=== PATIENT | female | born 2000 | race Caucasian/White ===

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

== ENCOUNTER 2020-08-24 14:24 | Emergency (ER) | payer OTHER ==
[2020-08-24] MEDS ORDERED: diphenhydrAMINE 50 MG/ML 1 ML VIAL IVP STA (15:08)
[2020-08-24] MEDS ORDERED: SODIUM CHLORIDE 0.9% 1,000 ML IV STA (15:08)
[2020-08-24] MEDS ORDERED: METOCLOPRAMIDE 5 MG/ML 2 ML VIAL IVP STA (15:08)
[2020-08-24] MEDS ORDERED: SODIUM CHLORIDE 0.9% 500 ML 500 ML IV ONE (15:09)
--- NOTE | 2020-08-24 15:51 | ED ---
Nausea/Vomiting/Diarrhea HPI - General Chief complaint: Nausea/Vomiting/Diarrhea Stated complaint: Vomiting, 7 weeks preg Time Seen by Provider: 08/24/20 15:04 Source: patient Mode of arrival: ambulatory Limitations: no limitations - History of Present Illness Initial comments: 20 year-old female patient presents to the emergency department for evaluation of nausea and vomiting. States that symptoms have been present for the last 4 days. Patient is . LMP was 07/05/20, believes she is around 7 weeks. She is . No vaginal bleeding or discharge. Did try unisom and vitamin B6, but was unable to keep down the pills. Reports mild intermittent lower abdominal cramping. Denies any hematuria, dysuria, urinary urgency, or frequency. Denies any fever or chills. Denies any recent travel or sick contacts. Denies diarrhea or constipation. No hematemesis. Patient denies any recent rash, fever, chills, cough, shortness of breath, chest pain, back pain, numbness, tingling, dizziness, weakness, hematuria, dysuria, urinary urgency, urinary frequency, headache, visual changes, or any other complaints. She will be seeing Dr. Clarke. No ultrasound yet. - Related Data Home Medications Medication Instructions Recorded Confirmed Acetaminophen [Tylenol] 1,000 mg PO Q4-6H PRN 01/28/18 02/18/18 Calcium Carbonate [Tums Ultra 2 tab PO Q6H PRN 01/28/18 02/18/18 Strength] Ranitidine HCl [Zantac] 150 mg PO BID 01/28/18 02/18/18 Previous Rx's Medication Instructions Recorded Ibuprofen [Motrin] 600 mg PO Q6HR PRN #40 tab 02/19/18 Cephalexin [Keflex] 500 mg PO BID #14 cap 08/24/20 Famotidine [Pepcid] 20 mg PO HS #30 tablet 08/24/20 Metoclopramide [Reglan] 10 mg PO Q8H PRN #21 tab 08/24/20 Allergies Allergy/AdvReac Type Severity Reaction Status Date / Time azithromycin Allergy Anaphylaxis Verified 08/24/20 14:27 erythromycin base Allergy Rash/Hives Verified 08/24/20 14:27 Sulfa (Sulfonamide Allergy Rash/Hives Verified 08/24/20 14:27 Antibiotics) Review of Systems ROS Statement: Those systems with pertinent positive or pertinent negative responses have been documented in the HPI. ROS Other: All systems not noted in ROS Statement are negative. Past Medical History Past Medical History: Asthma History of Any Multi-Drug Resistant Organisms: None Reported Past Surgical History: No Surgical Hx Reported Past Anesthesia/Blood Transfusion Reactions: No Reported Reaction Past Psychological History: Anxiety, Bipolar, Depression Smoking Status: Never smoker Past Alcohol Use History: None Reported Past Drug Use History: None Reported - Past Family History Mother Family Medical History: No Reported History General Exam Limitations: no limitations General appearance: alert, in no apparent distress, other (This is a well- developed, well-nourished adult female patient in no acute distress. Vital signs upon presentation are temperature 97.7F, pulse 77, respirations 20, blood pressure 117/73, pulse ox 100% on room air.) ENT exam: Present: normal exam, normal oropharynx, mucous membranes moist Respiratory exam: Present: normal lung sounds bilaterally. Absent: respiratory distress, wheezes, rales, rhonchi, stridor Cardiovascular Exam: Present: regular rate, normal rhythm, normal heart sounds. Absent: systolic murmur, diastolic murmur, rubs, gallop, clicks GI/Abdominal exam: Present: soft, normal bowel sounds. Absent: distended, tenderness, guarding, rebound, rigid Neurological exam: Present: alert, oriented X3, CN II-XII intact Psychiatric exam: Present: normal affect, normal mood Skin exam: Present: warm, dry, intact, normal color. Absent: rash Course Vital Signs 08/24/20 08/24/20 14:25 16:21 Temperature 97.7 F Pulse Rate 77 Respiratory 20 16 Rate Blood Pressure 117/73 O2 Sat by Pulse 100 Oximetry Medical Decision Making - Medical Decision Making 20 year-old female patient presents for evaluation of vomiting in early . Patient is about 7 weeks based on last menstrual period. Denies significant pelvic pain, vaginal bleeding, or discharge. Physical examination reveals soft non-tender abdomen. Labs reviewed and are unremarkable. Urine shows UTI. She is treated with dose of rocephin and script for keflex. She was given normal saline, reglan, and benadryl. Upon re-evaluation she reports persistent nausea, but no further vomiting. She will be given pepcid. Discharge with prescription for Reglan and Pepcid. She is requesting discharged. She does have ultrasound next week. Is instructed to follow-up with her EXECUTIVE COMPENSATION ANALYST for recheck as soon as possible. Return parameters were discussed in detail. She verbalizes understanding and agrees with this plan. My attending is Dr. Mendez. - Lab Data Result diagrams: 08/24/20 15:28 08/24/20 15:28 Lab Results 08/24/20 08/24/20 08/24/20 Range/Units 15:28 15:28 15:28 WBC 8.9 (3.8-10.6) k/uL RBC 5.37 (3.80-5.40) m/uL Hgb 15.0 (11.4-16.0) gm/dL Hct 44.4 (34.0-46.0) % MCV 82.6 (80.0-100.0) fL MCH 27.9 (25.0-35.0) pg MCHC 33.8 (31.0-37.0) g/dL RDW 14.1 (11.5-15.5) % Plt Count 246 (150-450) k/uL MPV 7.5 Neutrophils % 73 % Lymphocytes % 20 % Monocytes % 4 % Eosinophils % 1 % Basophils % 0 % Neutrophils # 6.5 (1.3-7.7) k/uL Lymphocytes # 1.8 (1.0-4.8) k/uL Monocytes # 0.4 (0-1.0) k/uL Eosinophils # 0.1 (0-0.7) k/uL Basophils # 0.0 (0-0.2) k/uL Sodium 136 L (137-145) mmol/L Potassium 3.7 (3.5-5.1) mmol/L Chloride 102 (98-107) mmol/L Carbon Dioxide 25 (22-30) mmol/L Anion Gap 9 mmol/L BUN 11 (7-17) mg/dL Creatinine 0.54 (0.52-1.04) mg/dL Est GFR (CKD-EPI)AfAm >90 (>60 ml/min/1.73 sqM) Est GFR (CKD-EPI)NonAf >90 (>60 ml/min/1.73 sqM) Glucose 78 (74-99) mg/dL Calcium 9.4 (8.4-10.2) mg/dL Total Bilirubin 0.4 (0.2-1.3) mg/dL AST 29 (14-36) U/L ALT 24 (4-34) U/L Alkaline Phosphatase 60 (38-126) U/L Total Protein 7.5 (6.3-8.2) g/dL Albumin 4.5 (3.5-5.0) g/dL Lipase 38 (23-300) U/L Urine Color Yellow Urine Appearance Cloudy H (Clear) Urine pH 6.5 (5.0-8.0) Ur Specific [place] 1.034 (1.001-1.035) Urine Protein 1+ H (Negative) Urine Glucose (UA) Negative (Negative) Urine Ketones 4+ H (Negative) Urine Blood Negative (Negative) Urine Nitrite Negative (Negative) Urine Bilirubin Negative (Negative) Urine Urobilinogen <2.0 (<2.0) mg/dL Ur Leukocyte Esterase Large H (Negative) Urine RBC 8 H (0-5) /hpf Urine WBC 39 H (0-5) /hpf Ur Squamous Epith Cells 35 H (0-4) /hpf Urine Bacteria Occasional H (None) /hpf Urine Mucus Many H (None) /hpf Disposition Clinical Impression: Vomiting during Disposition: HOME SELF-CARE Condition: Good Instructions (If sedation given, give patient instructions): Acute Nausea and Vomiting (ED) Additional Instructions: Take medications as directed. Try to keep something in her stomach at all times. Small frequent meals. Follow-up with the EXECUTIVE COMPENSATION ANALYST for further evaluation as soon as possible. Return for any new, worsening, or concerning symptoms. Prescriptions: Famotidine [Pepcid] 20 mg PO HS #30 tablet Metoclopramide [Reglan] 10 mg PO Q8H PRN #21 tab PRN Reason: Vomiting Is patient prescribed a controlled substance at d/c from ED?: No Referrals: Anastacia Vazquez NPC [Primary Care Provider] - 1-2 days Time of Disposition: 17:01
[2020-08-24 16:01] LABS: Appearance,Urine Cloudy (Clear); Bacteria,Urine Occasional /hpf; Bilirubin,Urine Negative (Negative); Blood,Urine Negative (Negative); Color,Urine Yellow; Glucose,Urine (UA) Negative (Negative); Ketones,Urine 4+ (Negative); Leukocyte Esterase,Urine Large (Negative); Mucus,Urine Many /hpf; Nitrite,Urine Negative (Negative); PH, Urine 6.5 (5.0-8.0); Protein,Urine 1+ (Negative); RBC,Urine 8 /hpf (0-5); Specific Gravity,Urine 1.034 (1.001-1.035); Squamous Epithelial Cell,Urine 35 /hpf (0-4); Urobilinogen,Urine <2.0 mg/dL (<2.0); WBC,Urine 39 /hpf (0-5)
[2020-08-24 16:10] LABS: ALT 24 U/L (4-34); AST 29 U/L (14-36); African American GFR (CKD) >90 (>60 ml/min/1.73 sqM); Albumin 4.5 g/dL (3.5-5.0); Alkaline Phosphatase 60 U/L (38-126); Anion Gap 9 mmol/L; Blood Urea Nitrogen 11 mg/dL (7-17); Calcium 9.4 mg/dL (8.4-10.2); Carbon Dioxide 25 mmol/L (22-30); Chloride 102 mmol/L (98-107); Glucose 78 mg/dL (74-99); Lipase 38 U/L (23-300); Non-African American GFR(CKD) >90 (>60 ml/min/1.73 sqM); Potassium 3.7 mmol/L (3.5-5.1); Sodium 136 mmol/L (137-145); Total Bilirubin 0.4 mg/dL (0.2-1.3); Total Protein 7.5 g/dL (6.3-8.2)
[2020-08-24 16:23] VITALS: RESP 16
[2020-08-24 16:29] LABS: Basophils % (A) 0 %; Eosinophils # (A) 0.1 k/uL (0-0.7); Eosinophils % (A) 1 %; HCT 44.4 % (34.0-46.0); Lymphocytes # (A) 1.8 k/uL (1.0-4.8); Lymphocytes % (A) 20 %; MCH 27.9 pg (25.0-35.0); MCHC 33.8 g/dL (31.0-37.0); MCV 82.6 fL (80.0-100.0); Mean Platelet Volume 7.5; Monocytes # (A) 0.4 k/uL (0-1.0); Monocytes % (A) 4 %; Neutrophils # (A) 6.5 k/uL (1.3-7.7); Neutrophils % (A) 73 %; Platelet Count 246 k/uL (150-450); RBC 5.37 m/uL (3.80-5.40); RDW 14.1 % (11.5-15.5); WBC 8.9 k/uL (3.8-10.6)
[2020-08-24] MEDS ORDERED: cefTRIAXone IN SWFI 1,000 MG/10 ML SYRINGE IVP STA (16:46)
[2020-08-24] MEDS ORDERED: FAMOTIDINE 20 MG/2 ML VIAL IV STA (17:00)
[2020-08-24 17:34] VITALS: BP 121/72; PULSE 82; TEMP 98.1
== END 2020-08-24 17:30 | disposition home or self-care (01) ==
LOC: EC 14:24
DX: O21.9 Vomiting of pregnancy, unspecified (principal); O99.511 Diseases of the respiratory system complicating pregnancy, first trimester; J45.909 Unspecified asthma, uncomplicated; O99.341 Other mental disorders complicating pregnancy, first trimester; F32.9 Major depressive disorder, single episode, unspecified; Z3A.01 Less than 8 weeks gestation of pregnancy
CPT/HCPCS: 36415; 80053; 83690; 85025; 81001; 87086; 99284; 96374; 96375 ×2; 96361 ×2; J1200; J2765; J0696

== ENCOUNTER 2021-04-05 06:12 | Inpatient (IN) | payer OTHER ==
--- NOTE | 2021-04-04 08:06 | P.HPOB ---
History of Present Illness H&P Date: 04/04/21 Chief Complaint: Requested induction of labor This patient is a pleasant 21-year-old 2 para 1 female estimated date of confinement 04/12/2021 estimated gestational age 39 weeks who presents to labor and delivery for requested induction of labor. Patient's care is complicated by first trimester exposure to Lamictal and Lexapro per her PCP. Evaluation per maternal- medicine showed normal anatomy ultrasound she's had normal heart echo as well as testing. is also complicated by gestational diabetes and is seen maternal medicine for management of this as well. otherwise has been uncomplicated and she is now uncomfortable requested induction of labor. Review of Systems Genitourinary: Reports Menstruation: Reports amenorrhea Past Medical History Past Medical History: Asthma Additional Past Medical History / Comment(s): gestational diabetes diet controlled History of Any Multi-Drug Resistant Organisms: None Reported Past Surgical History: No Surgical Hx Reported Past Anesthesia/Blood Transfusion Reactions: No Reported Reaction Past Psychological History: Anxiety, Bipolar, Depression Smoking Status: Never smoker Past Alcohol Use History: None Reported Past Drug Use History: None Reported - Past Family History Mother Family Medical History: No Reported History Medications and Allergies Home Medications Medication Instructions Recorded Confirmed Type Acetaminophen [Tylenol] 1,000 mg PO Q4-6H PRN 01/28/18 02/18/18 History Calcium Carbonate [Tums Ultra 2 tab PO Q6H PRN 01/28/18 02/18/18 History Strength] Ranitidine HCl [Zantac] 150 mg PO BID 01/28/18 02/18/18 History Ibuprofen [Motrin] 600 mg PO Q6HR PRN #40 tab 02/19/18 Rx Cephalexin [Keflex] 500 mg PO BID #14 cap 08/24/20 Rx Famotidine [Pepcid] 20 mg PO HS #30 tablet 08/24/20 Rx Metoclopramide [Reglan] 10 mg PO Q8H PRN #21 tab 08/24/20 Rx Allergies Allergy/AdvReac Type Severity Reaction Status Date / Time azithromycin Allergy Anaphylaxis Verified 08/24/20 14:27 erythromycin base Allergy Rash/Hives Verified 08/24/20 14:27 Sulfa (Sulfonamide Allergy Rash/Hives Verified 08/24/20 14:27 Antibiotics) Exam - OBG Physical Exam Abdomen: bowel sounds normal, no diffuse tenderness, no bruit present, no guarding noted, no hepatomegaly, no splenomegaly, no mass Vulva: both: normal Vagina: normal moisture, no discharge Cervix: no lesion (cervix in the office is 2 cm dilated 50% effaced -2 station.), no discharge Uterus: enlarged (fundal height 39 cm) Results labs: A positive, rubella immune, RPR nonreactive, hepatitis B negative, HIV is nonreactive, Glucola was 173 with an abnormal 3 hour gtt., cardiac echo was normal, group B strep was positive, most recent ultrasound showed normal growth at the 31st percentile per maternal- medicine. Assessment and Plan Assessment: This is a pleasant 21-year-old 2 para 1 female 39-0/7 weeks gestation who is admitted to labor and delivery for requested induction of labor. Patient has a history of positive strep culture this and therefore be given antibiotic prophylaxis. Plan is Pitocin induction of labor per protocol and anticipate vaginal delivery. (1) 39 weeks gestation of Status: Acute Code(s): Z3A.39 - 39 WEEKS GESTATION OF SNOMED Code(s): 68331787 (2) Gestational diabetes Status: Acute Code(s): O24.419 - GESTATIONAL DIABETES MELLITUS IN , UNSP CONTROL SNOMED Code(s): 43063832 (3) Elective induction of labor planned Status: Acute Code(s): UUH0525 - SNOMED Code(s): 042093271 (4) Group B streptococcal carriage complicating Status: Acute Code(s): O99.820 - STREPTOCOCCUS B CARRIER STATE COMPLICATING SNOMED Code(s): 358688071444540
[2021-04-05] MEDS ORDERED: OXYTOCIN 30 UNITS/500 ML NS 30 UNIT in SALINE 1 500ML.BAG IV SCH ×2 (06:35→17:30)
[2021-04-05] MEDS ORDERED: LIDOCAINE 0.5% (PF) 5 MG/ML (50 ML SDV) SQ PRN (06:35)
[2021-04-05] MEDS ORDERED: AMPICILLIN 2,000 MG in SODIUM CHLORIDE 0.9% 100 ML IVPB STA ×2 (06:35→07:23)
[2021-04-05] MEDS ORDERED: OXYTOCIN 10 UNIT/ML 1 ML VIAL IM PRN (06:35)
[2021-04-05] MEDS ORDERED: METHYLERGONOVINE 0.2 MG/ML 1 ML AMP IM PRN (06:35)
[2021-04-05] MEDS ORDERED: AMPICILLIN 1,000 MG in SODIUM CHLORIDE 0.9% 50 ML IVPB SCH ×2 (06:35→12:00)
[2021-04-05] MEDS: LACTATED RINGERS 1,000 ML IV SCH ×5 (06:35→23:28)
[2021-04-05] MEDS ORDERED: TERBUTALINE 1 MG/ML VIAL SQ PRN (06:35)
[2021-04-05] MEDS ORDERED: CARBOPROST TROMETHAMINE 250 MCG/ML 1 ML AMP IM PRN (06:35)
[2021-04-05 07:06] LABS: Anisocytosis Slight; Basophils % (A) 0 %; Eosinophils # (A) 0.1 k/uL (0-0.7); Eosinophils % (A) 1 %; HCT 36.1 % (34.0-46.0); Hypochromasia Marked; Lymphocytes # (A) 2.3 k/uL (1.0-4.8); Lymphocytes % (A) 23 %; MCH 21.7 pg (25.0-35.0); MCHC 30.5 g/dL (31.0-37.0); Mean Platelet Volume 8.5; Microcytosis Marked; Monocytes # (A) 0.4 k/uL (0-1.0); Monocytes % (A) 4 %; Neutrophils # (A) 6.9 k/uL (1.3-7.7); Neutrophils % (A) 70 %; Platelet Count 172 k/uL (150-450); Poikilocytosis Moderate; RBC 5.08 m/uL (3.80-5.40); RDW 17.5 % (11.5-15.5); WBC 9.9 k/uL (3.8-10.6)
[2021-04-05] MEDS ORDERED: BUTORPHANOL 1 MG/ML 1 ML VIAL IV PRN (07:24)
[2021-04-05 07:48] LABS: Glucose,Whole Blood 83 mg/dL (75-99)
[2021-04-05] MEDS ORDERED: BUPIVACAINE (PF) 0.25% 30 ML VIAL ONE (10:14)
[2021-04-05] MEDS ORDERED: fentaNYL (PF) 50 MCG/ML 5 ML AMP ONE (10:14)
[2021-04-05] MEDS ORDERED: SODIUM CHLORIDE 0.9% 100 ML BAG ONE (10:14)
[2021-04-05] MEDS ORDERED: ROPIVACAINE 100 MG, fentaNYL (PF). 200 MCG in SODIUM CHLORIDE 0.9% 76 ML EPIDURAL ONE (10:32)
[2021-04-05] MEDS ORDERED: LORazepam 2 MG/ML INJ IV STA ×2 (11:36)
[2021-04-05] MEDS ORDERED: CITRIC ACID-SODIUM CITRATE 15 ML CUP PO ONE (15:48)
[2021-04-05] MEDS ORDERED: PHENYLEPHRINE-0.9% NACL SYG 1,000 MCG/10 ML SYRINGE ONE (16:39)
[2021-04-05] MEDS ORDERED: MORPHINE SULFATE (PF) 0.3 MG/0.3 ML SYR ONE (16:39)
[2021-04-05] MEDS ORDERED: NALBUPHINE 10 MG/ML (1 ML AMP) ONE (16:39)
[2021-04-05] MEDS ORDERED: OXYTOCIN 30 UNITS/500 ML NS BAG IV ONE (16:39)
[2021-04-05] MEDS ORDERED: KETOROLAC 15 MG/ML 1 ML VIAL ONE (16:39)
[2021-04-05] MEDS ORDERED: ONDANSETRON 4 MG/2 ML VIAL ONE (16:39)
[2021-04-05] MEDS ORDERED: NALOXONE 0.4 MG/ML 1 ML VIAL IV PRN (17:28)
[2021-04-05] MEDS ORDERED: LANOLIN CREAM 5 GM TUBE TOPICAL PRN (17:28)
[2021-04-05] MEDS ORDERED: diphenhydrAMINE 50 MG/ML 1 ML VIAL IVP PRN (17:28)
[2021-04-05] MEDS ORDERED: ONDANSETRON 4 MG/2 ML VIAL IVP PRN (17:28)
[2021-04-05] MEDS ORDERED: METOCLOPRAMIDE 5 MG/ML 2 ML VIAL IVP PRN (17:28)
[2021-04-05] MEDS ORDERED: ZOLPIDEM 5 MG TAB PO PRN (17:28)
[2021-04-05] MEDS ORDERED: diphenhydrAMINE 25 MG CAP PO PRN (17:28)
--- NOTE | 2021-04-05 17:44 | P.OP ---
Date of Procedure: 04/05/21 Preoperative Diagnosis: #1: 39-0/7 week . #2: Gestational diabetes. #3: Intolerance of labor, remote from delivery. Postoperative Diagnosis: Same Procedure(s) Performed: Primary low transverse section Anesthesia: spinal Surgeon: Arun Clarke Stockroom Worker #1: Sarai Qureshi Estimated Blood Loss (ml): 440 Pathology: other (Placenta) Condition: stable Disposition: floor Indications for Procedure: Please see dictated H&P for intimate details of this patient's admission. Brief summary this is a pleasant 21-year-old 2 para 1 female 39-0/7 weeks gestation admitted this morning for requested elective induction of labor. On admission patient is 2-3 cm dilated has artificial rupture membranes for clear fluid. Patient does have quite a significant anxiety disorder and at this time patient refused to have the Pitocin increased due to her anxiety. After getting her some pain relief we did convince her to continue with the Pitocin and attempts at delivery. Patient had an epidural and had some relief however continued having excessive anxiety level. That time I gave her 1 mg of Ativan did give her some relief. Patient however did progress to 6-7 cm dilated and at that time she completely lost control and requested a section. I did discuss with her and her mother and her partner and they understood this surgery and certainly had risks. This time she is refusing labor and requested section therefore I granted her wish to proceed. Patient does understand surgery and risks and risks of infection, bleeding, possible injury bowel, bladder, vessels, and/or other organs. All the patient's questions are answered and a written consent is obtained. Operative Findings: This is a vigorous viable female Apgars 8 and 9 delivery time is 1654 hrs. Nuchal cord 1. Description of Procedure: This patient has a Brice catheter placed to straight drain. She is subsequently taken to the operating room where she sat up and spinal anesthetic is administered. With adequate level of anesthesia she has abdominal prep and drape. Scalpels and taken Pfannenstiel skin incision is then made. A second scalpel is taken down the fascia and the fascia scored with a knife. Fascial incision is then extended bilaterally using the Martin scissors. Fascia is dissected off the rectus muscles sharply. Rectus muscles are and peritoneum identified and entered sharply. Peritoneal incision extended superior and inferior without difficulty. Bladder blade is then placed. Bladder peritoneum was taken off the lower uterine segment. Scalpels and taken low transverse uterine incision is then made. This time using a hemostat to enter the uterine cavity bluntly and there is loss of clear fluid. Uterine incision extended bluntly. 's head is then gently guided through the incision with fundal pressure. Mouth and nares are bulb suctioned. There is a very loose nuchal cord which is reduced. With more fundal pressure we then have deliver the rest this infant's body. Vigorous viable female Apgars are 8 and 9 delivery time was 1654 hrs. Infant has spontaneous respirations and good cry and grossly appears normal. After delivery of the infant the umbilical cord is doubly clamped and cut appears to be trivascular. The placenta is then manually extracted intact. Uterus is then externalized and uterine incision demarcated with Garcia clamps. Uterine incision then closed using 0 Vicryl running locked fashion 2 layers. Excellent hemostasis is noted. The bladder peritoneum was then reapproximated using a 3-0 Vicryl. Excess fluid is removed from the abdomen and pelvis. The uterus, tubes, ovaries all appear normal for term gestation. Uterus placed back into the abdomen. The parietal peritoneum was then closed in 0 Vicryl running fashion. Rectus muscles reapproximated in 0 Vicryl interrupted fashion. Fascial incision closed using 0 PDS. Fascial incision is intact and hemostatic. Subcutaneous tissues and closed using a 3-0 Vicryl. Skin is and closed using vicky. All counts are correct 3. and mother are taken together birthing suite in satisfactory condition. There are no complications.
[2021-04-05] MEDS: ACETAMINOPHEN TAB 500 MG TAB PO PRN (19:29)
[2021-04-05] MEDS: lamoTRIgine 25 MG TAB PO SCH (19:30)
[2021-04-05] MEDS: ESCITALOPRAM 10 MG TAB PO SCH (19:30)
[2021-04-05] MEDS: SENNOSIDES-DOCUSATE SODIUM 1 EACH TAB PO SCH (20:32)
[2021-04-05] MEDS: KETOROLAC 30 MG/ML 1 ML VIAL IVP SCH (23:26)
[2021-04-06] MEDS: ACETAMINOPHEN TAB 500 MG TAB PO PRN ×3 (03:06→21:02)
[2021-04-06] MEDS: KETOROLAC 30 MG/ML 1 ML VIAL IVP SCH ×2 (05:36→11:19)
[2021-04-06 07:03] LABS: Anisocytosis Slight; Basophils % (A) 0 %; Eosinophils % (A) 0 %; HGB 10.1 gm/dL (11.4-16.0); Hypochromasia Marked; Lymphocytes # (A) 1.9 k/uL (1.0-4.8); Lymphocytes % (A) 20 %; MCH 21.9 pg (25.0-35.0); MCHC 30.6 g/dL (31.0-37.0); MCV 71.6 fL (80.0-100.0); Mean Platelet Volume 8.4; Microcytosis Moderate; Monocytes # (A) 0.5 k/uL (0-1.0); Monocytes % (A) 5 %; Neutrophils # (A) 7.2 k/uL (1.3-7.7); Neutrophils % (A) 74 %; Platelet Count 151 k/uL (150-450); Poikilocytosis Moderate; RBC 4.61 m/uL (3.80-5.40); RDW 17.8 % (11.5-15.5); WBC 9.7 k/uL (3.8-10.6)
--- NOTE | 2021-04-06 07:49 | P.PNOBGPC ---
Subjective - Subjective Principal diagnosis: S/P 1*LTCS POD #1 Interval history: Patient seen and examined. Denies nausea, vomiting, chest pain, shortness of breath or any calf pain. Patient reports: Reports appetite normal, Reports pain well controlled : doing well Objective - Vital Signs Latest vital signs: Vital Signs Temp Pulse Resp BP Pulse Ox 04/06/21 03:29 97.8 F 70 18 127/77 93 L 04/06/21 00:00 98.1 F 72 18 127/75 95 04/05/21 19:18 65 16 131/80 99 04/05/21 18:48 73 16 127/75 99 04/05/21 18:18 76 16 121/78 98 04/05/21 18:03 75 16 109/63 95 04/05/21 17:48 78 16 108/64 96 04/05/21 17:33 94 16 107/53 97 04/05/21 17:18 98.0 F 77 16 108/49 93 L 04/05/21 08:00 97.3 F L 88 16 142/98 Intake and Output 04/05/21 04/06/21 04/06/21 22:59 06:59 14:59 Output Total 300 Balance -300 Output: Urine 300 Uretheral (Brice) 100 - Exam Lungs: bilateral: normal Chest: Normal S1, Normal S2 Extremities: Present: normal Abdomen: Present: normal appearance, soft. Absent: distention, tenderness Incision: Present: normal, dry, intact Uterus: Present: normal, firm - Labs Labs: Abnormal Lab Results - Last 24 Hours (Table) 04/06/21 Range/Units 05:08 Hgb 10.1 L (11.4-16.0) gm/dL Hct 33.0 L (34.0-46.0) % MCV 71.6 L (80.0-100.0) fL MCH 21.9 L (25.0-35.0) pg MCHC 30.6 L (31.0-37.0) g/dL RDW 17.8 H (11.5-15.5) % Assessment and Plan (1) Status post primary low transverse section Current Visit: Yes Status: Acute Code(s): Z98.891 - HISTORY OF UTERINE SCAR FROM PREVIOUS SURGERY SNOMED Code(s): 391839840 Plan: 1. increase ambulation 2. reg diet 3. po pain meds
[2021-04-06] MEDS: SENNOSIDES-DOCUSATE SODIUM 1 EACH TAB PO SCH ×2 (07:50→21:02)
[2021-04-06] MEDS: lamoTRIgine 25 MG TAB PO SCH ×2 (09:19→21:02)
[2021-04-06] MEDS: ESCITALOPRAM 10 MG TAB PO SCH ×2 (09:20→21:02)
--- NOTE | 2021-04-06 09:34 | P.PN ---
Progress Note - Text Progress Note Date: 04/06/21 Patient seen and examined at bedside POD 1 s/p with spinal duramorph. Patient is sitting up and reports minimal pain. She is able to ambulate and use the restroom without difficulty. She has no motor or sensory deficits. Patient reports no itching from the duramorph. Site is clean and dry without erythema. Patient denies MERCADO, F/C, parathesias, N/V. Continue to follow.
[2021-04-06] MEDS: SIMETHICONE 80 MG CHEWABLE PO PRN ×3 (12:03→21:02)
[2021-04-06] MEDS: LACTATED RINGERS 1,000 ML IV SCH (13:27)
[2021-04-06] MEDS: IBUPROFEN 600 MG TAB PO PRN ×2 (17:29→23:43)
[2021-04-07 00:41] VITALS: TEMP 98.1
[2021-04-07] MEDS: ACETAMINOPHEN TAB 500 MG TAB PO PRN ×2 (02:54→11:04)
[2021-04-07] MEDS: SENNOSIDES-DOCUSATE SODIUM 1 EACH TAB PO SCH (08:14)
[2021-04-07] MEDS: IBUPROFEN 600 MG TAB PO PRN (08:14)
[2021-04-07] MEDS: SIMETHICONE 80 MG CHEWABLE PO PRN (08:32)
[2021-04-07 10:28] VITALS: BP 125/85; PULSE 86; RESP 18
--- NOTE | 2021-04-07 12:36 | P.DS ---
Providers Date of admission: 04/05/21 06:12 Expected date of discharge: 04/07/21 Attending physician: Arun Clarke Primary care physician: Stated None Hospital Course: Linda is doing very well post op day 2. She is ambulating, voiding and tolerating her diet. She voices no complaints. Vital signs are stable and afebrile. Heart regular, lungs clear, extremities without pain. Her abdomen is soft and bowel sounds are noted. She is passing flatus. Her incision is clean dry and intact. We'll plan to remove vicky prior discharge. All questions are answered for her in discharge instructions reviewed. She had prescriptions for pain medication reported by Dr. Silverio. All the questions are answered and she is stable for discharge this time. She'll follow up with Dr. Clarke 1 week. Patient Condition at Discharge: Good Plan - Discharge Summary New Discharge Prescriptions: No Action Acetaminophen [Tylenol] 1,000 mg PO Q4-6H PRN PRN Reason: Pain Or Fever > 100.5 Calcium Carbonate [Tums Ultra Strength] 2 tab PO Q6H PRN PRN Reason: Heartburn Escitalopram Oxalate [Lexapro] 1 tab PO DAILY lamoTRIgine [LaMICtal] 1 tab PO DAILY Discharge Medication List Acetaminophen [Tylenol] 1,000 mg PO Q4-6H PRN 01/28/18 [History] Calcium Carbonate [Tums Ultra Strength] 2 tab PO Q6H PRN 01/28/18 [History] Escitalopram Oxalate [Lexapro] 1 tab PO DAILY 04/05/21 [History] lamoTRIgine [LaMICtal] 1 tab PO DAILY 04/05/21 [History] Follow up Appointment(s)/Referral(s): Arun Clarke MD [STAFF PHYSICIAN] - 05/17/21 2:45 pm (Post Op 04-14-2021 @11:30) Activity/Diet/Wound Care/Special Instructions: No Heavy lifting, limit stairs and driving, and pelvic rest. If any high temperatures, heavy bleeding, or severe pain call my office Discharge Disposition: HOME SELF-CARE
== END 2021-04-07 13:10 | disposition home or self-care (01) | DRG 788 ==
LOC: 4FBP 06:12
PROVIDERS: ADMIT Obstetrics & Gynecology; ATTEND Obstetrics & Gynecology
PROC: 3E033VJ Introduction of Other Hormone into Peripheral Vein, Percutaneous Approach (ICD-10-PCS; 2021-04-05)
PROC: 10D00Z1 Extraction of Products of Conception, Low, Open Approach (ICD-10-PCS; principal; 2021-04-05 06:00)
DX: O24.420 Gestational diabetes mellitus in childbirth, diet controlled (principal); O69.81X0 Labor and delivery complicated by cord around neck, without compression, not applicable or unspecified; F31.9 Bipolar disorder, unspecified; O99.824 Streptococcus B carrier state complicating childbirth; F41.9 Anxiety disorder, unspecified; J45.909 Unspecified asthma, uncomplicated; O99.344 Other mental disorders complicating childbirth; O99.52 Diseases of the respiratory system complicating childbirth; Z37.0 Single live birth; Z3A.39 39 weeks gestation of pregnancy; Z88.1 Allergy status to other antibiotic agents; Z88.2 Allergy status to sulfonamides
CPT/HCPCS: 83036; 85025; 86850; 86900; 86901; 88307